=== PATIENT | female | born 1995 | race Two or more races ===

== ENCOUNTER 2022-12-03 21:35 | Emergency (ER) | payer SELFPAY ==
[~2022-12-03] VITALS: Ht 167.6 cm; Wt 85.0 kg
[2022-12-04] MEDS ORDERED: ONDANSETRON 4MG ODT PO STA (04:29)
[2022-12-04] MEDS ORDERED: ONDA4TAB50 MT (04:48)
[2022-12-04 05:09] VITALS: BP 136/86
== END 2022-12-04 05:11 | disposition home or self-care (01) ==
LOC: ER 21:35
DX: R11.2 Nausea with vomiting, unspecified (principal); F14.10 Cocaine abuse, uncomplicated
CPT/HCPCS: 99283; Q0162